=== PATIENT | male | born 1995 | race Caucasian/White ===

== ENCOUNTER 2023-08-14 08:22 | Emergency (ER) | payer MEDICAID ==
[~2023-08-14] VITALS: Ht 154.9 cm; Wt 74.0 kg
[2023-08-14 08:35] VITALS: TEMP 98
[2023-08-14 08:45] LABS: COVID AG,FIA SOURCE NASAL SWAB
[2023-08-14] MEDS: LORazepam 2 MG TABLET PO ONE (08:49)
[2023-08-14 08:52] LABS: BASOPHILS % (AUTO) 0.3 % (0.0-2.0); EOSINOPHILS % (AUTO) 0 % (1.0-6.0); HEMATOCRIT 41.9 % (41-53); HEMOGLOBIN 14.3 g/dL (13.5-17.5); LYMPHOCYTES # (AUTO) 1.3 K/uL (1.0-4.8); LYMPHOCYTES % (AUTO) 11.2 % (22.0-44.0); MEAN CORPUSCULAR HEMOGLOBIN 29.7 pg (26.0-34.0); MEAN CORPUSCULAR HGB CONC 34.1 G/dL (31.0-37.0); MEAN CORPUSCULAR VOLUME 87 fL (80-100); MONOCYTES # (AUTO) 1.2 K/uL (0.1-1.0); MONOCYTES % (AUTO) 10.1 % (2.0-9.0); NEUTROPHILS # (AUTO) 9.3 K/uL (1.8-7.7); NEUTROPHILS % (AUTO) 78.4 % (40.0-70.0); PLATELET COUNT (AUTO) 463 K/uL (150-450); RED BLOOD CELL COUNT(AUTO) 4.81 MIL/uL (4.50-5.90); RED CELL DISTRIBUTION WIDTH 12.9 % (11.5-14.5); WHITE BLOOD COUNT (AUTO) 11.9 K/uL (4.5-11.0)
[2023-08-14 09:04] LABS: ANION GAP 14 mmol/L (8-16); CALCIUM, TOTAL 9.2 mg/dL (8.8-10.5); CARBON DIOXIDE 22 mmol/L (22-29); CHLORIDE 97 mmol/L (98-107); CREATININE 1.31 mg/dL (0.60-1.30); GLOMERULAR FILTR. RATE CALC > 60 mL/min (>60); GLUCOSE,RANDOM 133 mg/dL (70-110); POTASSIUM 3.5 mmol/L (3.5-5.1); SODIUM SERUM 133 mmol/L (136-145); UREA NITROGEN, BLOOD 22 mg/dL (7-18)
[2023-08-14] MEDS ORDERED: QUET200T PO (09:05)
[2023-08-14] MEDS ORDERED: CHOL25TA4 PO (09:05)
[2023-08-14] MEDS ORDERED: PROP20TA7 PO (09:05)
[2023-08-14] MEDS ORDERED: OXYB5TAB20 PO (09:05)
[2023-08-14] MEDS ORDERED: BUSP10TA23 PO (09:05)
[2023-08-14] MEDS ORDERED: LAMO-24 PO (09:05)
[2023-08-14] MEDS ORDERED: LORA-1000 PO (09:05)
[2023-08-14] MEDS ORDERED: HALO5TAB23 PO (09:05)
[2023-08-14 09:10] LABS: ALANINE AMINOTRANSFERASE 29 U/L (12-78); ALBUMIN 4.5 g/dL (3.4-5.0); ALKALINE PHOSPHATASE 72 U/L (46-116); ASPARTATE AMINOTRANSFERASE 34 U/L (15-37); BILIRUBIN,TOTAL 1.1 mg/dL (0.1-1.0); TOTAL PROTEIN, SERUM 8.1 g/dL (6.4-8.2)
[2023-08-14 09:12] LABS: ALCOHOL, BLOOD (SERUM) < 3 mg/dL (0-10)
[2023-08-14] MEDS: HALOPERIDOL 5 MG TABLET PO ONE (10:05)
[2023-08-14 10:19] LABS: SARS-COV2 (COVID) ANTIGEN,FIA Negative (Negative)
[2023-08-14 11:45] VITALS: BP 149/88; PULSE 114; RESP 16
== END 2023-08-14 12:06 | disposition home or self-care (01) ==
LOC: EMS 08:23
DX: F41.9 Anxiety disorder, unspecified (principal); R45.1 Restlessness and agitation; F31.9 Bipolar disorder, unspecified; Z20.822 Contact with and (suspected) exposure to COVID-19
CPT/HCPCS: 99291; 87426; 80053; 85025; 36415; G0480

== ENCOUNTER 2023-08-14 13:27 | Inpatient (IN) | payer MEDICAID ==
[~2023-08-14] VITALS: Ht 167.6 cm; Wt 83.0 kg
[~2023-08-14 13:27] MED LIST: BUSP10TA23 PO; CHOL25TA4 PO; HALO5TAB23 PO; LAMO-24 PO; LORA-1000 PO; OXYB5TAB20 PO; PROP20TA7 PO; QUET200T PO
[2023-08-14] MEDS: DiphenhydrAMINE HCL 50 MG/ML VIAL IM ONE (14:41)
[2023-08-14] MEDS: HALOPERIDOL LACTATE 5 MG/ML VIAL IM ONE (14:41)
[2023-08-14] MEDS: LORazepam 2 MG/ML VIAL IM ONE (14:41)
[2023-08-14 21:08] LABS: COVID AG,FIA SOURCE NASAL SWAB
[2023-08-14 21:31] LABS: SARS-COV2 (COVID) ANTIGEN,FIA Negative (Negative)
[2023-08-14 22:59] VITALS: BP 104/54; PULSE 126; RESP 18; TEMP 97.3
[2023-08-14] MEDS ORDERED: INFLUENZA VIRUS VACCINE QVS 2023-24 (6MO+)/PF 60 MCG/0.5 ML SYRINGE IM. ONE (23:00)
[2023-08-15 00:12] VITALS: BP 104/54; PULSE 126; RESP 18; TEMP 97.3; O2SAT 98
[2023-08-15 08:29] VITALS: BP 118/69; PULSE 100; RESP 17; TEMP 98; O2SAT 98
[2023-08-15] MEDS ORDERED: DOCUSATE SODIUM 100 MG CAPSULE PO PRN (10:00)
[2023-08-15] MEDS ORDERED: IBUPROFEN 400 MG TABLET PO PRN (10:00)
[2023-08-15] MEDS ORDERED: ALBUTEROL SULFATE HFA 90 MCG/PUFF 8 GM INHALER IH PRN (10:00)
[2023-08-15] MEDS ORDERED: PETROLATUM,WHITE 28 GM JELLY TP PRN (10:00)
[2023-08-15] MEDS ORDERED: NICOTINE 14 MG/24 HOUR PATCH TD PRN (10:00)
[2023-08-15] MEDS ORDERED: MAG HYDROX/ALUMINUM HYD/SIMETH ES 30 ML SUSPENSION UDCUP PO PRN (10:00)
[2023-08-15] MEDS ORDERED: LOPERAMIDE HCL 2 MG CAPSULE PO PRN (10:00)
[2023-08-15] MEDS ORDERED: GuaiFENesin/D-METHORPHAN [SUGAR-FREE] 200-20MG/10 ML SYRUP UDCUP PO PRN (10:00)
[2023-08-15] MEDS ORDERED: ACETAMINOPHEN 325 MG TABLET PO PRN (10:00)
[2023-08-15] MEDS ORDERED: CloNIDine HCL 0.1 MG TABLET PO PRN (10:00)
[2023-08-15] MEDS ORDERED: MAGNESIUM HYDROXIDE SUSPENSION 30 ML UDCUP PO PRN (10:00)
[2023-08-15] MEDS ORDERED: ONDANSETRON HCL 4 MG TABLET PO PRN (10:00)
[2023-08-15] MEDS: PROPRANOLOL HCL 10 MG TABLET PO SCH (17:18)
[2023-08-15] MEDS: BusPIRone HCL 10 MG TABLET PO SCH (17:18)
[2023-08-15] MEDS: LamoTRIgine 100 MG TABLET PO SCH (17:18)
[2023-08-15 20:53] VITALS: RESP 18
[2023-08-15] MEDS: QUEtiapine FUMARATE 200 MG TABLET PO SCH (20:59)
[2023-08-15] MEDS: HALOPERIDOL 5 MG TABLET PO SCH (20:59)
[2023-08-16 08:29] VITALS: BP 121/54; PULSE 100; RESP 17; TEMP 97.9; O2SAT 100
[2023-08-16] MEDS: HALOPERIDOL 5 MG TABLET PO PRN (15:45)
[2023-08-16 18:00] VITALS: BP 137/78; PULSE 102; RESP 21; TEMP 97.2
[2023-08-16] MEDS: LORazepam 2 MG TABLET PO PRN (18:00)
[2023-08-16] MEDS: BENZTROPINE MESYLATE 2 MG TABLET PO SCH (18:47)
[2023-08-16] MEDS: QUEtiapine FUMARATE 200 MG TABLET PO SCH (21:30)
[2023-08-16 22:21] VITALS: BP 120/70; PULSE 110; RESP 18; TEMP 97.8; O2SAT 99
[2023-08-17] MEDS: ZOLPIDEM TARTRATE 10 MG TABLET PO PRN (00:15)
[2023-08-17 08:43] VITALS: BP 123/67; PULSE 106; RESP 16; TEMP 98; O2SAT 98
[2023-08-17 20:21] VITALS: BP 123/75; PULSE 83; TEMP 98; O2SAT 99
[2023-08-18 08:35] VITALS: BP 105/62; PULSE 78; RESP 17; TEMP 98.9; O2SAT 100
[2023-08-18 21:01] VITALS: BP 132/86; PULSE 86; TEMP 96.9; O2SAT 98
[2023-08-19 08:06] VITALS: BP 114/62; PULSE 83; RESP 17; TEMP 98.2; O2SAT 100
[2023-08-19 08:40] LABS: BASOPHILS % (AUTO) 0.8 % (0.0-2.0); EOSINOPHILS % (AUTO) 1.9 % (1.0-6.0); HEMATOCRIT 39.7 % (41-53); HEMOGLOBIN 13.4 g/dL (13.5-17.5); MEAN CORPUSCULAR HEMOGLOBIN 29.5 pg (26.0-34.0); MEAN CORPUSCULAR HGB CONC 33.8 G/dL (31.0-37.0); MEAN CORPUSCULAR VOLUME 87 fL (80-100); MONOCYTES # (AUTO) 0.6 K/uL (0.1-1.0); MONOCYTES % (AUTO) 9.7 % (2.0-9.0); NEUTROPHILS # (AUTO) 2.8 K/uL (1.8-7.7); NEUTROPHILS % (AUTO) 42.6 % (40.0-70.0); PLATELET COUNT (AUTO) 391 K/uL (150-450); RED BLOOD CELL COUNT(AUTO) 4.55 MIL/uL (4.50-5.90); RED CELL DISTRIBUTION WIDTH 12.7 % (11.5-14.5); WHITE BLOOD COUNT (AUTO) 6.6 K/uL (4.5-11.0)
[2023-08-19 08:55] LABS: HEMOGLOBIN A1C 5.5 % (3.8-5.6)
[2023-08-19 09:02] LABS: APPEARANCE,URINE CLEAR (CLEAR); BILIRUBIN,URINE NEGATIVE (NEGATIVE); COLOR,URINE COLORLESS (YELLOW); GLUCOSE, URINE (UA) NEGATIVE (NEGATIVE); KETONES,URINE NEGATIVE (NEGATIVE); LEUKOCYTE ESTERASE ,URINE NEGATIVE (NEGATIVE); NITRATE,URINE NEGATIVE (NEGATIVE); OCCULT BLOOD,URINE NEGATIVE (NEGATIVE); PH,URINE 7.5 (5.0-8.0); PH,URINE DRUG SCREEN 7.5 (5.0-8.0); PROTEIN,URINE NEGATIVE (NEGATIVE); SPECIFIC GRAVITIY, URINE 1.005 (1.003-1.030); UROBILINOGEN,URINE <=1.0 mg/dL (<=1.0)
[2023-08-19 09:08] LABS: ANION GAP 9 mmol/L (8-16); CALCIUM, TOTAL 8.7 mg/dL (8.8-10.5); CARBON DIOXIDE 28 mmol/L (22-29); CHLORIDE 101 mmol/L (98-107); CHOL/HDL RATIO 3.8 (4.2-7.3); CHOLESTEROL 210 mg/dL (131-200); CREATININE 1.02 mg/dL (0.60-1.30); FREE T4 (FREE THYROXINE) 1.17 ng/dL (0.76-1.46); GLOMERULAR FILTR. RATE CALC > 60 mL/min (>60); GLUCOSE,RANDOM 86 mg/dL (70-110); HDL CHOLESTEROL 56 mg/dL (40-60); LDL CHOL (CALC.) 140 mg/dL (0-130); POTASSIUM 3.8 mmol/L (3.5-5.1); SODIUM SERUM 138 mmol/L (136-145); THYROID STIMULATING HORMONE 2.37 uIU/mL (0.36-3.74); TRIGLYCERIDES 72 mg/dL (15-150); UREA NITROGEN, BLOOD 18 mg/dL (7-18)
[2023-08-19 09:09] LABS: ALCOHOL, URINE DRUG SCREEN NEGATIVE (NEGATIVE); AMPHET/METH SCREEN,URINE NEGATIVE (NEGATIVE); BARBITURATE SCREEN, URINE NEGATIVE (NEGATIVE); BENZODIAZEPINES SCREEN,URINE NEGATIVE (NEGATIVE); CANNABINOID SCREEN,URINE NEGATIVE (NEGATIVE); COCAINE SCREEN,URINE NEGATIVE (NEGATIVE); METHADONE SCREEN, URINE NEGATIVE (NEGATIVE); OPIATE SCREEN,URINE NEGATIVE (NEGATIVE); PHENCYCLIDINE SCREEN,URINE NEGATIVE (NEGATIVE)
[2023-08-19] MEDS ORDERED: BENZ2TAB71 PO (10:51)
== END 2023-08-19 16:10 | disposition home or self-care (01) | DRG 750 ==
LOC: EMS 13:27 → B3A 19:55
PROVIDERS: ADMIT Psychiatry & Neurology Psychiatry; ATTEND Psychiatry & Neurology Psychiatry
PROC: GZHZZZZ Group Psychotherapy (ICD-10-PCS; principal; 2023-08-15)
PROC: GZ51ZZZ Individual Psychotherapy, Behavioral (ICD-10-PCS; 2023-08-15)
DX: F25.0 Schizoaffective disorder, bipolar type (principal); R45.851 Suicidal ideations; I10 Essential (primary) hypertension; Z20.822 Contact with and (suspected) exposure to COVID-19; E55.9 Vitamin D deficiency, unspecified; S00.03XA Contusion of scalp, initial encounter; F41.9 Anxiety disorder, unspecified; Z87.81 Personal history of (healed) traumatic fracture; X58.XXXA Exposure to other specified factors, initial encounter; Y93.89 Activity, other specified; Y92.89 Other specified places as the place of occurrence of the external cause; Y99.8 Other external cause status; Z79.899 Other long term (current) drug therapy
CPT/HCPCS: 70450; 80048; 80061; 80307; 81003; 83036; 84439; 84443; 85025; 99291; J1200; J1630; J2060